=== PATIENT | male | born 1940 | race American Indian/Alaskan Native ===

== ENCOUNTER 2016-11-22 13:05 | Inpatient (IN) | payer MEDICARE ==
--- NOTE | 2016-11-22 13:00 | Post Operative Note ---
Pre-op diagnosis: bilat ureteral stones .. sarcoma Post-op diagnosis: same Findings: as above bladder stone Procedure: cysto rpgs stents rogs laser bladder stone and extrs=ction Anesthesia: GETA Surgeon: BG CHEN Estimated blood loss: none Pathology: list (stone) Specimen disposition: given to patient/family Condition: other (guarded) Disposition: PACU
[~2016-11-22 13:05] MED LIST: OMNIPAQUE 300 MG/50 ML (CATH LAB) IV ONE; WATER FOR IRRIG STERILE IR ONE
--- NOTE | 2016-11-22 13:47 | Anesthesia Consultation ---
Anesthesia Consult and Med Hx Date of service: 11/22/16 - Airway Anesthetic Teeth Evaluation: Dentures ROM Head & Neck: Adequate Mental/Hyoid Distance: Adequate Mallampati Class: Class III Intubation Access Assessment: Probably Good - Pulmonary Exam CTA: Yes - Cardiac Exam Cardiac Exam: RRR - Pre-Operative Health Status ASA Pre-Surgery Classification: ASA2 Proposed Anesthetic Plan: General - Pulmonary Hx Smoking: Yes (former) - Cardiovascular System Hx Hypertension: Yes - Central Nervous System Hx Neuromuscular Disorder: No (gout) - Endocrine Hx Renal Disease: Yes (stones)
[2016-11-22] MEDS ORDERED: MORPHINE IV PRN (13:48)
[2016-11-22] MEDS ORDERED: ZOFRAN IV PRN ×4 (13:48→17:52)
--- NOTE | 2016-11-22 13:48 | Anesthesia Day of Surgery ---
Anesthesia Day of Surgery - Day of Surgery Patient Examined: Yes Patient H&P Reviewed: Yes Patient is NPO: Yes
[2016-11-22] MEDS ORDERED: PEPCID IV NR (14:00)
[2016-11-22] MEDS ORDERED: DIPRIVAN 10 MG/ML IV ONE (14:34)
[2016-11-22] MEDS ORDERED: DILAUDID ONE (14:34)
[2016-11-22] MEDS ORDERED: XYLOCAINE MPF 2% ONE (14:35)
[2016-11-22] MEDS: NACL 0.9% 1000 ML 1,000 ML IV SCH (14:36)
[2016-11-22] MEDS ORDERED: ANCEF/STERILE WATER 2 GM/20 ML IV NR (14:45)
[2016-11-22 15:01] LABS: Basophils % (Auto) 0.2 % (0.0-1.8); Eosinophils % (Auto) 0.5 % (0.0-4.3); Hematocrit 32.5 % (35.5-45.6); Hemoglobin 10.3 gm/dl (11.8-15.2); Mean Corpuscular HGB Conc 32 % (32-34); Platelet Count 344 K/mm3 (140-440); Red Blood Count 4.79 M/mm3 (3.65-5.03); White Blood Count 10.4 K/mm3 (4.5-11.0)
[2016-11-22 15:02] LABS: BUN/Creatinine Ratio 4.75; Blood Urea Nitrogen 69 mg/dL (9-20); Calcium 8.7 mg/dL (8.4-10.2); Chloride 81.7 mmol/L (98-107); Glucose 57 mg/dL (75-100); Mean Corpuscular Hemoglobin 22 pg (28-32); Mean Corpuscular Volume 68 fl (84-94); Sodium 124 mmol/L (137-145)
[2016-11-22 15:04] LABS: Potassium TNR mmol/L (3.6-5.0)
[2016-11-22 15:05] LABS: Anion Gap TNR mmol/L; Carbon Dioxide TNR mmol/L (22-30)
[2016-11-22] MEDS ORDERED: D50W (25GM) IV ONE ×6 (15:09→19:00)
[2016-11-22 15:59] LABS: BUN/Creatinine Ratio 4.82; Calcium 8.7 mg/dL (8.4-10.2); Chloride 87.8 mmol/L (98-107)
[2016-11-22 16:05] LABS: Potassium 2.7 mmol/L (3.6-5.0)
[2016-11-22] MEDS: KCL 10MEQ/100ML 10 MEQ/100 ML BAG IV SCH ×3 (16:21→22:38)
[2016-11-22] MEDS ORDERED: OMNIPAQUE 300 MG/50 ML (CATH LAB) IV ONE (16:43)
[2016-11-22] MEDS ORDERED: WATER FOR IRRIG STERILE IR ONE ×2 (16:43)
[2016-11-22] MEDS ORDERED: NEO SYNEPHRINE/NS Syringe(OR USE) IV ONE (16:52)
[2016-11-22] MEDS ORDERED: ZOFRAN ONE (16:52)
[2016-11-22] MEDS ORDERED: DULCOLAX PR PRN (17:49)
[2016-11-22] MEDS ORDERED: TYLENOL PO PRN (17:49)
[2016-11-22] MEDS ORDERED: DILAUDID IV PRN (17:49)
[2016-11-22] MEDS ORDERED: MILK OF MAGNESIA PO PRN (17:49)
--- NOTE | 2016-11-22 17:50 | Post Anesthesia Evaluation ---
- Post Anesthesia Evaluation Patient Participated: Yes Airway Patent: Yes Stable Respiratory Function: Yes Nausea/Vomiting: No Temp > 96.8F: Yes Pain Manageable: Yes Adequeate Hydration: Yes Anesthesia Complications: No Block Receding Appropriately: Yes Patient on Ventilator: No
[2016-11-22] MEDS ORDERED: REGLAN IV PRN (18:11)
--- NOTE | 2016-11-22 18:19 | History and Physical Report ---
History of Present Illness Date of examination: 11/22/16 Date of admission: 11/22/2016 Chief complaint: Decreased urinary output. History of present illness: 76 y/o AAF underwent cystoscopy with bladder stone removal by laser and bilateral ureteral stents for relief of bilateral hydronephrosis.Patient has creatinine of 14 before the procedure. 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) Social history: lives with family (with one of the daughters), other (Chews Tobacco) Family history: hypertension Medications and Allergies Allergies Allergy/AdvReac Type Severity Reaction Status Date / Time NKDA Allergy Unknown Unknown Uncoded 11/22/16 13:42 Home Medications Medication Instructions Recorded Confirmed Last Taken Type Allopurinol [Allopurinol] 100 mg PO TID 11/22/16 11/22/16 11/20/16 History Levofloxacin [Levaquin TAB] 500 mg PO QDAY 11/22/16 11/22/16 11/21/16 History Lovastatin [Lovastatin] 40 mg PO DAILY 11/22/16 11/22/16 11/20/16 History Polyethylene Glycol 3350 [Miralax] 11/22/16 11/19/16 History Verapamil HCl [Verelan] 360 mg PO 11/22/16 11/20/16 History Active Meds: Active Medications Acetaminophen (Tylenol) 650 mg PO Q4H PRN PRN Reason: Pain MILD(1-3)/Fever >100.5/MOLINA Bisacodyl (Dulcolax) 10 mg [place] QDAY PRN PRN Reason: Constipation unrelieved by MOM Cefazolin Sodium (Ancef/Sterile Water 2 Gm/20 Ml) 2 gm IV PREOP NR Stop: 11/22/16 23:59 Dextrose (D50w (25gm)) 50 gm IV ONCE ONE Stop: 11/22/16 18:00 Enoxaparin Sodium (Lovenox) 30 mg SUB-Q QDAY SHANA Famotidine (Pepcid) 20 mg IV PREOP NR Stop: 11/22/16 23:01 Last Admin: 11/22/16 14:35 Dose: 20 mg Hydromorphone HCl (Dilaudid) 0.5 mg IV Q3H PRN PRN Reason: Pain , Severe (7-10) Sodium Chloride (Nacl 0.9% 1000 Ml) 1,000 mls @ 100 mls/hr IV DIRECT SHANA Last Admin: 11/22/16 14:36 Dose: 42 mls/hr Potassium Chloride (Kcl 10meq/100ml) 10 meq in 100 mls @ 100 mls/hr IV Q1H SHANA Stop: 11/22/16 18:59 Last Admin: 11/22/16 16:21 Dose: 100 mls/hr Potassium Chloride (Kcl 10meq/100ml) 100 mls @ 100 mls/hr IV Q1H SHANA Stop: 11/22/16 21:59 Potassium Chloride 20 meq/ (Dextrose/Sodium Chloride) 1,010 mls @ 125 mls/hr IV DIRECT SHANA Magnesium Hydroxide (Milk Of Magnesia) 30 ml PO Q4H PRN PRN Reason: Constipation Morphine Sulfate (Morphine) 2 mg IV Q10MIN PRN PRN Reason: Pain, Moderate (4-6) Stop: 11/22/16 23:00 Ondansetron HCl (Zofran) 4 mg IV ONCE PRN PRN Reason: Nausea And Vomiting Stop: 11/22/16 17:53 Ondansetron HCl (Zofran) 4 mg IV Q8H PRN PRN Reason: N/V unrelieved by Reglan Potassium Chloride (K-Dur) 40 meq PO Q4H SHANA Stop: 11/26/16 17:59 Review of Systems All systems: negative Exam - Constitutional Vitals: Temp Pulse Resp BP Pulse Ox 97.9 F 86 20 139/79 99 11/22/16 14:21 11/22/16 14:21 11/22/16 14:21 11/22/16 14:21 11/22/16 14:21 General appearance: Present: no acute distress, well-nourished - EENT Eyes: Present: PERRL ENT: hearing intact, clear oral mucosa - Neck Neck: Present: supple, normal ROM - Respiratory Respiratory effort: normal Respiratory: bilateral: CTA - Cardiovascular Heart Sounds: Present: S1 & S2. Absent: rub, click - Extremities Extremities: pulses symmetrical, No edema Peripheral Pulses: within normal limits - Abdominal General gastrointestinal: Present: soft, non-tender, non-distended, normal bowel sounds Male genitourinary: Present: normal - Integumentary Integumentary: Present: clear, warm, dry - Musculoskeletal Musculoskeletal: gait normal, strength equal bilaterally - Psychiatric Psychiatric: appropriate mood/affect, intact judgment & insight - Neurologic Neurologic: CNII-XII intact, moves all extremities Results - Labs CBC & Chem 7: 11/22/16 14:25 11/22/16 15:15 Labs: Laboratory Last Values WBC 10.4 K/mm3 (4.5-11.0) 11/22/16 14:25 RBC 4.79 M/mm3 (3.65-5.03) 11/22/16 14:25 Hgb 10.3 gm/dl (11.8-15.2) L 11/22/16 14:25 Hct 32.5 % (35.5-45.6) L 11/22/16 14:25 MCV 68 fl (84-94) L 11/22/16 14:25 MCH 22 pg (28-32) L 11/22/16 14:25 MCHC 32 % (32-34) 11/22/16 14:25 RDW 22.0 % (13.2-15.2) H 11/22/16 14:25 Plt Count 344 K/mm3 (140-440) 11/22/16 14:25 Lymph % (Auto) 10.4 % (13.4-35.0) L 11/22/16 14:25 Harvey % (Auto) 11.4 % (0.0-7.3) H 11/22/16 14:25 Eos % (Auto) 0.5 % (0.0-4.3) 11/22/16 14:25 Baso % (Auto) 0.2 % (0.0-1.8) 11/22/16 14:25 Lymph # 1.1 K/mm3 (1.2-5.4) L 11/22/16 14:25 Harvey # 1.2 K/mm3 (0.0-0.8) H 11/22/16 14:25 Eos # 0.1 K/mm3 (0.0-0.4) 11/22/16 14:25 Baso # 0.0 K/mm3 (0.0-0.1) 11/22/16 14:25 Seg Neutrophils % 77.5 % (40.0-70.0) H 11/22/16 14:25 Seg Neutrophils # 8.0 K/mm3 (1.8-7.7) H 11/22/16 14:25 Sodium 133 mmol/L (137-145) L D 11/22/16 15:15 Potassium 2.7 mmol/L (3.6-5.0) L* 11/22/16 15:15 Chloride 87.8 mmol/L (98-107) L 11/22/16 15:15 Carbon Dioxide 17 mmol/L (22-30) L 11/22/16 15:15 Anion Gap 31 mmol/L 11/22/16 15:15 BUN 70 mg/dL (9-20) H 11/22/16 15:15 Creatinine 14.5 mg/dL (0.8-1.5) H 11/22/16 15:15 Estimated GFR 4 ml/min 11/22/16 15:15 BUN/Creatinine Ratio 4.82 % 11/22/16 15:15 Glucose 70 mg/dL (75-100) L 11/22/16 15:15 Calcium 8.7 mg/dL (8.4-10.2) 11/22/16 15:15 Assessment and Plan Advance Directives: Yes (Discussed.Son to decide tomorrow about DNR) VTE prophylaxis?: Chemical Plan of care discussed with patient/family: No - Patient Problems (1) Acute renal failure (ARF) Current Visit: Yes Status: Acute Qualifiers: Acute renal failure type: with acute renal cortical necrosis Qualified Code (s): N17.1 - Acute kidney failure with acute cortical necrosis Plan to address problem: Post obstuctive renal faiure.S/p bilateral ureteral stent placement done.With relief of obstruction there maybe resolution.Possible cortical damage resulting in HD. 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
[2016-11-22] MEDS ORDERED: D5NS 1,000 ML with KCL 20 MEQ IV SCH (19:00)
[2016-11-22 20:05] LABS: Basophils % (Auto) 0.1 % (0.0-1.8); Eosinophils % (Auto) 0.1 % (0.0-4.3); Hemoglobin 10.2 gm/dl (11.8-15.2); Mean Corpuscular HGB Conc 32 % (32-34); Platelet Count 297 K/mm3 (140-440); Red Blood Count 4.58 M/mm3 (3.65-5.03); White Blood Count 11.8 K/mm3 (4.5-11.0)
[2016-11-22 20:07] LABS: Mean Corpuscular Hemoglobin 22 pg (28-32); Mean Corpuscular Volume 70 fl (84-94)
[2016-11-22 20:08] LABS: Red Cell Distribution Width 22.2 % (13.2-15.2)
--- NOTE | 2016-11-22 20:26 | Operative Report ---
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 PROCEDURE: Cystoscopy, bilateral stents, laser of large bladder stone with extraction of stone. SURGEON: Bob Henson MD ANESTHESIA: Spinal. FINDINGS: This is a gentleman who presented severely ill. We offered him even hospice with a large sarcoma in the pelvis, bilateral renal stones and ureteral stones and bladder stones with right flank pain. He now presents for stenting with a creatinine of over 14. DESCRIPTION OF PROCEDURE: The patient was brought to the operating room and placed on the operating table. Following induction of anesthesia which was spinal, placed in lithotomy position, prepped and draped in usual sterile fashion. Cystourethroscopy showed a previously resected bladder neck and partial prostate. There was some mild bladder neck narrowing. Retrograde showed severe bilateral hydronephrosis with ureteral UPJ stones and left upper ureteral stone. There was a 1 cm bladder stone, which was a jackstone. The wire coiled in the right kidney and a 4.8 x 24 cm double J coiled in the right side and a 7-Norwegian double J coiled on the left side. The stone was too big to extract, so we lasered it into three pieces and extracted that. The patient tolerated the procedure well. We placed a 22 Mcmillan. The patient had intermittent nausea and vomiting, so we did not want to disturb anything. His creatinine was high. His potassium was low. So, we placed a stent, removed the stone, and finished the procedure, brought to recovery in guarded condition. JOB# [id number] DANIEL/GONZALEZ
[2016-11-22 20:29] LABS: Albumin 3.4 g/dL (3.9-5); Albumin/Globulin Ratio 0.8 %; BUN/Creatinine Ratio 5.72; Bilirubin,Total 0.4 mg/dL (0.1-1.2); Calcium 8.7 mg/dL (8.4-10.2); Chloride 88.8 mmol/L (98-107); Potassium 3.2 mmol/L (3.6-5.0); Total Protein 7.7 g/dL (6.3-8.2)
[2016-11-23] MEDS: KCL 10MEQ/100ML 10 MEQ/100 ML BAG IV SCH ×3 (00:31→02:40)
[2016-11-23] MEDS: K-DUR PO SCH ×5 (02:34→09:49)
[2016-11-23 05:53] LABS: Albumin 3.3 g/dL (3.9-5); Albumin/Globulin Ratio 0.8 %; BUN/Creatinine Ratio 7.63; Bilirubin,Total 0.3 mg/dL (0.1-1.2); Chloride 95.8 mmol/L (98-107); Potassium 3.3 mmol/L (3.6-5.0); Total Protein 7.4 g/dL (6.3-8.2)
[2016-11-23 06:06] LABS: Mean Corpuscular HGB Conc 30 % (32-34); Red Blood Count 4.86 M/mm3 (3.65-5.03); White Blood Count 9.8 K/mm3 (4.5-11.0)
[2016-11-23 06:11] LABS: Hematocrit 33.9 % (35.5-45.6); Hemoglobin 10.1 gm/dl (11.8-15.2); Mean Corpuscular Volume 70 fl (84-94)
[2016-11-23 06:12] LABS: Mean Corpuscular Hemoglobin 21 pg (28-32); Red Cell Distribution Width 22.3 % (13.2-15.2)
[2016-11-23 06:27] LABS: Platelet Count 124 K/mm3 (140-440)
[2016-11-23 08:18] LABS: Basophils % (Auto) 0.2 % (0.0-1.8); Eosinophils % (Auto) 0.2 % (0.0-4.3)
[2016-11-23 08:19] LABS: Diff Status Complete
--- NOTE | 2016-11-23 08:29 | Progress Note ---
Assessment and Plan excellent improval renal function leave julia has stents rec director of social work possible hospice with huge sarcoma discussed last night with family Subjective Date of service: 11/23/16 Principal diagnosis: acute renal failure Objective - Constitutional Vitals: Vital Signs - 12hr 11/22/16 11/23/16 11/23/16 21:30 00:15 04:30 Temperature 97.5 F L 97.9 F 98 F Pulse Rate [ 60 71 75 Left] Respiratory 20 20 20 Rate Blood Pressure 157/75 142/90 136/82 [Left Arm] O2 Sat by Pulse 98 100 100 Oximetry - Labs CBC & Chem 7: 11/23/16 04:54 11/23/16 04:54 Labs: Abnormal lab results 11/22/16 11/22/16 11/22/16 Range/Units 14:25 14:25 15:15 WBC (4.5-11.0) K/mm3 Hgb 10.3 L (11.8-15.2) gm/dl Hct 32.5 L (35.5-45.6) % MCV 68 L (84-94) fl MCH 22 L (28-32) pg MCHC (32-34) % RDW 22.0 H (13.2-15.2) % Plt Count (140-440) K/mm3 Lymph % (Auto) 10.4 L (13.4-35.0) % Beckham % (Auto) 11.4 H (0.0-7.3) % Lymph # 1.1 L (1.2-5.4) K/mm3 Beckham # 1.2 H (0.0-0.8) K/mm3 Seg Neutrophils % 77.5 H (40.0-70.0) % Seg Neutrophils # 8.0 H (1.8-7.7) K/mm3 Sodium 124 L 133 L D (137-145) mmol/L Potassium 2.7 L* (3.6-5.0) mmol/L Chloride 81.7 L 87.8 L (98-107) mmol/L Carbon Dioxide 17 L (22-30) mmol/L BUN 69 H 70 H (9-20) mg/dL Creatinine 14.5 H 14.5 H (0.8-1.5) mg/dL Glucose 57 L 70 L (75-100) mg/dL Albumin (3.9-5) g/dL 03/03/17 03/03/17 03/04/17 Range/Units 20:00 20:00 04:54 WBC 11.8 H (4.5-11.0) K/mm3 Hgb 10.2 L 10.1 L (11.8-15.2) gm/dl Hct 32.0 L 33.9 L (35.5-45.6) % MCV 70 L 70 L (84-94) fl MCH 22 L 21 L (28-32) pg MCHC 30 L (32-34) % RDW 22.2 H 22.3 H (13.2-15.2) % Plt Count 124 L (140-440) K/mm3 Lymph % (Auto) 7.0 L 8.0 L (13.4-35.0) % Beckham % (Auto) 12.0 H 8.4 H (0.0-7.3) % Lymph # 0.8 L 0.8 L (1.2-5.4) K/mm3 Beckham # 1.4 H (0.0-0.8) K/mm3 Seg Neutrophils % 80.8 H 83.2 H (40.0-70.0) % Seg Neutrophils # 9.5 H 8.1 H (1.8-7.7) K/mm3 Sodium 133 L (137-145) mmol/L Potassium 3.2 L (3.6-5.0) mmol/L Chloride 88.8 L (98-107) mmol/L Carbon Dioxide 15 L (22-30) mmol/L BUN 67 H (9-20) mg/dL Creatinine 11.7 H (0.8-1.5) mg/dL Glucose 125 H (75-100) mg/dL Albumin 3.4 L (3.9-5) g/dL 11/23/16 Range/Units 04:54 WBC (4.5-11.0) K/mm3 Hgb (11.8-15.2) gm/dl Hct (35.5-45.6) % MCV (84-94) fl MCH (28-32) pg MCHC (32-34) % RDW (13.2-15.2) % Plt Count (140-440) K/mm3 Lymph % (Auto) (13.4-35.0) % Beckham % (Auto) (0.0-7.3) % Lymph # (1.2-5.4) K/mm3 Beckham # (0.0-0.8) K/mm3 Seg Neutrophils % (40.0-70.0) % Seg Neutrophils # (1.8-7.7) K/mm3 Sodium 136 L (137-145) mmol/L Potassium 3.3 L (3.6-5.0) mmol/L Chloride 95.8 L (98-107) mmol/L Carbon Dioxide 15 L (22-30) mmol/L BUN 55 H (9-20) mg/dL Creatinine 7.2 H (0.8-1.5) mg/dL Glucose 108 H (75-100) mg/dL Albumin 3.3 L (3.9-5) g/dL
[2016-11-23] MEDS: LOVENOX SUB-Q SCH (09:49)
--- NOTE | 2016-11-23 10:12 | Consultation ---
History of Present Illness - Reason for Consult Consult date: 11/23/16 acute renal failure, hypokalemia, metabolic acidosis - History of Present Illness Patient is a 76 y/o AAM with history significant for Hypertension, Hyperlipidemia, Gout and Retroperitoneal Sarcoma s/p resection presented with bilateral hydronephrosis and bladder stone. Patient is confused to give any history at this time. Patient underwent Cystoscopy, retrograde pyelogram, Bladder stone removal by laser and bilateral ureteral stents placed yesterday by Urologist. His creatinine was 14.5 prior to the procedure and has improved to 7 today. Baseline creatinine is unknown. Imaging done outside also showed large Sarcoma per Urologist. 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) Social history: lives with family (with one of the daughters), other (Chews Tobacco) Family history: hypertension Medications and Allergies Allergies Allergy/AdvReac Type Severity Reaction Status Date / Time NKDA Allergy Unknown Unknown Uncoded 11/22/16 13:42 Home Medications Medication Instructions Recorded Confirmed Last Taken Type Allopurinol [Allopurinol] 100 mg PO TID 11/22/16 11/22/16 11/20/16 History Hydrochlorothiazide 1 mg PO DAILY 11/22/16 11/22/16 11/20/16 History [Hydrochlorothiazide] Levofloxacin [Levaquin TAB] 500 mg PO QDAY 11/22/16 11/22/16 11/21/16 History Lovastatin [Lovastatin] 40 mg PO DAILY 11/22/16 11/22/16 11/20/16 History Polyethylene Glycol 3350 [Miralax] 17 gram PO DAILY PRN 11/22/16 11/22/16 History Verapamil HCl [Verelan] 360 mg PO DAILY 11/22/16 11/22/16 11/20/16 History Active Meds: Active Medications Acetaminophen (Tylenol) 650 mg PO Q4H PRN PRN Reason: Pain MILD(1-3)/Fever >100.5/MOLINA Bisacodyl (Dulcolax) 10 mg [place] QDAY PRN PRN Reason: Constipation unrelieved by MOM Enoxaparin Sodium (Lovenox) 30 mg SUB-Q QDAY SHANA Last Admin: 11/23/16 09:49 Dose: 30 mg Hydromorphone HCl (Dilaudid) 0.5 mg IV Q3H PRN PRN Reason: Pain , Severe (7-10) Sodium Chloride (Nacl 0.9% 1000 Ml) 1,000 mls @ 100 mls/hr IV DIRECT SHANA Last Admin: 11/22/16 14:36 Dose: 42 mls/hr Potassium Chloride 20 meq/ (Dextrose/Sodium Chloride) 1,010 mls @ 125 mls/hr IV DIRECT SHANA Last Admin: 11/23/16 03:02 Dose: 125 mls/hr Magnesium Hydroxide (Milk Of Magnesia) 30 ml PO Q4H PRN PRN Reason: Constipation Metoclopramide HCl (Reglan) 10 mg IV ONCE PRN PRN Reason: Nausea And Vomiting Last Admin: 11/22/16 18:30 Dose: 10 mg Ondansetron HCl (Zofran) 4 mg IV Q8H PRN PRN Reason: N/V unrelieved by Reglan Potassium Chloride (K-Dur) 40 meq PO Q4H SHANA Stop: 11/26/16 17:59 Last Admin: 11/23/16 09:49 Dose: 40 meq Review of Systems ROS unobtainable: due to mental status Exam - Vital Signs Vital signs: Vital Signs Temp Pulse Resp BP Pulse Ox 97.9 F 86 20 139/79 99 11/22/16 13:25 11/22/16 13:25 11/22/16 13:25 11/22/16 13:25 11/22/16 13:25 - General Appearance General appearance: well-developed, well-nourished, other (no distress) EENT: PERRL, hearing intact, vision intact Neck: Present: neck supple, trachea midline Respiratory: Clear to Ascultation Heart: regular, S1S2, no murmurs Gastrointestinal: Present: normoactive bowel sounds, other (dumont catheter noted ). Absent: tenderness, distended Integumentary: no rash, warm and dry Neurologic: confused, disoriented, other (not following any command) Musculoskeletal: Present: other (no edema) Results - Lab Results 11/23/16 04:54 11/23/16 04:54 Most recent lab results Calcium 9.0 mg/dL (8.4-10.2) 11/23/16 04:54 Magnesium 2.1 mg/dL (1.7-2.3) 11/22/16 20:00 - Image Kidney/bladder ultrasound: other Assessment and Plan - Patient Problems (1) Acute renal failure (ARF) Current Visit: Yes Status: Acute Qualifiers: Acute renal failure type: with acute renal cortical necrosis Qualified Code (s): N17.1 - Acute kidney failure with acute cortical necrosis Plan to address problem: Acute Kidney Injury in the setting of Obstructive Uropathy, now s/p bilateral stents. Creatinine is improving. Continue IV fluids. Monitor renal function. (2) Hypokalemia Current Visit: Yes Status: Acute Plan to address problem: Patient is IV and PO replacement. Monitor K levels. (3) Sarcoma Current Visit: Yes Status: Chronic (4) HTN (hypertension) Current Visit: Yes Status: Chronic Qualifiers: Hypertension type: essential hypertension Qualified Code(s): I10 - Essential (primary) hypertension Plan to address problem: BP well controlled. (5) Gout Current Visit: Yes Status: Chronic Qualifiers: Gout site: G Gout etiology: G Encounter type: E Laterality: L Chronicity: C Presence of tophus: P
--- NOTE | 2016-11-23 10:27 | Progress Note ---
Assessment and Plan Assessment and plan: 76 y/o AAF underwent cystoscopy with bladder stone removal by laser and bilateral ureteral stents for relief of bilateral hydronephrosis.Patient has creatinine of 14 before the procedure. (1) Acute renal failure (ARF) -Due to obstructive nephropathy Creatinine has trended down from 14-2.4, (2) Hypokalemia past supplemented and improved (3) HTN (hypertension) hypertensive medications on hold, patient's blood pressure is currently acceptable, we'll likely reintroduce blood pressure medications tomorrow (4) Gout resume allopurinol (5) HLD (hyperlipidemia) Resume statins (6) Sarcoma Status post recent surgical resection, however the mass was not completely resectable His surgeon is Dr. Wu at [facility] telephone #[phone] or And his primary care doctor is Dr. Blanton at [facility] -Will consult Dr Flower of Oncology, as patient has not been able to fup at [facility] or [facility] History Interval history: Patient is somewhat delirious, his son is at the bedside and states that postoperatively he usually remains delirious for 1-2 days. Nurses note that he has been diuresing him in quite a bit of urine. Hospitalist Physical - Physical exam Narrative exam: General: Patient appears well in no distress HEENT: MMM, EOMI cardiac: S1-S2 heard lungs: clear to auscultation, abdomen: Palpable nontender pelvic mass extremities: no edema clubbing or cyanosis Skin: no rash or lesion Neuro: no focal deficit Confused - Constitutional Vitals: Temp Pulse Resp BP Pulse Ox 98 F 75 20 136/82 100 11/23/16 04:30 11/23/16 04:30 11/23/16 04:30 11/23/16 04:30 11/23/16 04:30 General appearance: Present: no acute distress, well-nourished Results - Labs CBC & Chem 7: 11/23/16 04:54 11/24/16 04:28 Labs: Laboratory Last Values WBC 9.8 K/mm3 (4.5-11.0) 11/23/16 04:54 RBC 4.86 M/mm3 (3.65-5.03) 11/23/16 04:54 Hgb 10.1 gm/dl (11.8-15.2) L 11/23/16 04:54 Hct 33.9 % (35.5-45.6) L 11/23/16 04:54 MCV 70 fl (84-94) L 11/23/16 04:54 MCH 21 pg (28-32) L 11/23/16 04:54 MCHC 30 % (32-34) L 11/23/16 04:54 RDW 22.3 % (13.2-15.2) H 11/23/16 04:54 Plt Count 124 K/mm3 (140-440) L 11/23/16 04:54 Lymph % (Auto) 8.0 % (13.4-35.0) L 11/23/16 04:54 Appling % (Auto) 8.4 % (0.0-7.3) H 11/23/16 04:54 Eos % (Auto) 0.2 % (0.0-4.3) 11/23/16 04:54 Baso % (Auto) 0.2 % (0.0-1.8) 11/23/16 04:54 Lymph # 0.8 K/mm3 (1.2-5.4) L 11/23/16 04:54 Appling # 0.8 K/mm3 (0.0-0.8) 11/23/16 04:54 Eos # 0.0 K/mm3 (0.0-0.4) 11/23/16 04:54 Baso # 0.0 K/mm3 (0.0-0.1) 11/23/16 04:54 Add Manual Diff Complete 11/23/16 04:54 Seg Neutrophils % 83.2 % (40.0-70.0) H 11/23/16 04:54 Seg Neutrophils # 8.1 K/mm3 (1.8-7.7) H 11/23/16 04:54 Sodium 136 mmol/L (137-145) L 11/23/16 04:54 Potassium 3.3 mmol/L (3.6-5.0) L 11/23/16 04:54 Chloride 95.8 mmol/L (98-107) L 11/23/16 04:54 Carbon Dioxide 15 mmol/L (22-30) L 11/23/16 04:54 Anion Gap 29 mmol/L 11/23/16 04:54 BUN 55 mg/dL (9-20) H 11/23/16 04:54 Creatinine 7.2 mg/dL (0.8-1.5) H 11/23/16 04:54 Estimated GFR 9 ml/min 11/23/16 04:54 BUN/Creatinine Ratio 7.63 % 11/23/16 04:54 Glucose 108 mg/dL (75-100) H 11/23/16 04:54 Calcium 9.0 mg/dL (8.4-10.2) 11/23/16 04:54 Magnesium 2.1 mg/dL (1.7-2.3) 11/22/16 20:00 Total Bilirubin 0.3 mg/dL (0.1-1.2) 11/23/16 04:54 AST 12 units/L (5-40) 11/23/16 04:54 ALT 7 units/L (7-56) 11/23/16 04:54 Alkaline Phosphatase 70 units/L (35-129) 11/23/16 04:54 Total Protein 7.4 g/dL (6.3-8.2) 11/23/16 04:54 Albumin 3.3 g/dL (3.9-5) L 11/23/16 04:54 Albumin/Globulin Ratio 0.8 % 11/23/16 04:54
[2016-11-23] MEDS ORDERED: D5W/NS W/KCL 20MEQ 20 MEQ/1,000 ML BAG IV SCH (13:00)
[2016-11-23] MEDS ORDERED: K-DUR PO SCH (14:00)
[2016-11-23 17:28] LABS: Bilirubin,Urine NEG (Negative); Blood,Urine LG (Negative); Ketones,Urine NEG (Negative); Leukocyte Esterase,Urine MOD (Negative); Nitrite,Urine NEG (Negative); Urobilinogen,Urine < 2.0 mg/dL (<2.0)
[2016-11-23 17:30] LABS: RBC,Urine > 182.0 /HPF (0.0-6.0)
--- NOTE | 2016-11-23 23:04 | Consultation ---
History of Present Illness - Reason for Consult Consult date: 11/23/16 HX of Sarcoma. Requesting physician: ABHIJEET DING - History of Present Illness Thank you for this consult, patient seen/examined, labs/records reviewed, case d /w patient ,and his family at the bed side. Kindly asked to see this patient who presented with urinary sxs, found to be consistent with obstructive uropathy , and overt renal failure, and uti. 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 He was then seen by DR Gordon Arzola oncologist. All thes took place at [facility]. They the family denies any treatment with either chemo/or XRT. They were asked to come back on a 6month interval visit. i think that he will need a PET CT .This can be done once patient d/c as out patient.This will allow the family to see the extent of the disease burden, and possible mets. They still believe that 95% of the disease removed from his previous surgery, and as sebastien claimed they were told by the surgeon at [facility]. I seriously doubt that. The good thin is that he is relieved of the discomfort from the hydrnephrosis/nephrolithiasis. 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) Social history: lives with family (with one of the daughters), other (Chews Tobacco) Family history: hypertension Medications and Allergies Allergies Allergy/AdvReac Type Severity Reaction Status Date / Time NKDA Allergy Unknown Unknown Uncoded 11/22/16 13:42 Home Medications Medication Instructions Recorded Confirmed Last Taken Type Allopurinol [Allopurinol] 100 mg PO TID 11/22/16 11/22/16 11/20/16 History Hydrochlorothiazide 1 mg PO DAILY 11/22/16 11/22/16 11/20/16 History [Hydrochlorothiazide] Levofloxacin [Levaquin TAB] 500 mg PO QDAY 11/22/16 11/22/16 11/21/16 History Lovastatin [Lovastatin] 40 mg PO DAILY 11/22/16 11/22/16 11/20/16 History Polyethylene Glycol 3350 [Miralax] 17 gram PO DAILY PRN 11/22/16 11/22/16 History Verapamil HCl [Verelan] 360 mg PO DAILY 11/22/16 11/22/16 11/20/16 History Active Meds: Active Medications Acetaminophen (Tylenol) 650 mg PO Q4H PRN PRN Reason: Pain MILD(1-3)/Fever >100.5/MOLINA Bisacodyl (Dulcolax) 10 mg IN QDAY PRN PRN Reason: Constipation unrelieved by MOM Enoxaparin Sodium (Lovenox) 30 mg SUB-Q QDAY SHANA Last Admin: 11/23/16 09:49 Dose: 30 mg Hydromorphone HCl (Dilaudid) 0.5 mg IV Q3H PRN PRN Reason: Pain , Severe (7-10) Sodium Chloride (Nacl 0.9% 1000 Ml) 1,000 mls @ 100 mls/hr IV DIRECT SHANA Last Admin: 11/22/16 14:36 Dose: 42 mls/hr Potassium Chloride/Dextrose/Sod Cl (D5w/Ns W/Kcl 20meq) 20 meq in 1,000 mls @ 125 mls/hr IV DIRECT SHANA Last Admin: 11/23/16 14:04 Dose: 125 mls/hr Magnesium Hydroxide (Milk Of Magnesia) 30 ml PO Q4H PRN PRN Reason: Constipation Metoclopramide HCl (Reglan) 10 mg IV ONCE PRN PRN Reason: Nausea And Vomiting Last Admin: 11/22/16 18:30 Dose: 10 mg Ondansetron HCl (Zofran) 4 mg IV Q8H PRN PRN Reason: N/V unrelieved by Reglan Exam - Constitutional Vitals: Temp Pulse Resp BP Pulse Ox 98.0 F 71 20 147/73 100 11/23/16 20:00 11/23/16 20:00 11/23/16 20:00 11/23/16 20:00 11/23/16 20:00 General appearance: Present: no acute distress, mild distress, well-nourished - EENT Eyes: Present: PERRL ENT: hearing intact, clear oral mucosa - Neck Neck: Present: supple, normal ROM - Respiratory Respiratory effort: normal Respiratory: bilateral: CTA - Cardiovascular Heart Sounds: Present: S1 & S2. Absent: rub, click - Extremities Extremities: pulses symmetrical, No edema Peripheral Pulses: within normal limits - Abdominal General gastrointestinal: Present: soft, non-tender, non-distended, normal bowel sounds Male genitourinary: Present: deferred - Rectal Rectal Exam: deferred - Integumentary Integumentary: Present: clear, warm, dry - Musculoskeletal Musculoskeletal: gait normal, strength equal bilaterally - Psychiatric Psychiatric: appropriate mood/affect - Neurologic Neurologic: CNII-XII intact, moves all extremities Results - Labs CBC & Chem 7: 11/23/16 04:54 11/23/16 04:54 Labs: Abnormal lab results 11/23/16 11/23/16 11/23/16 Range/Units 04:54 04:54 10:16 Hgb 10.1 L (11.8-15.2) gm/dl Hct 33.9 L (35.5-45.6) % MCV 70 L (84-94) fl MCH 21 L (28-32) pg MCHC 30 L (32-34) % RDW 22.3 H (13.2-15.2) % Plt Count 124 L (140-440) K/mm3 Lymph % (Auto) 8.0 L (13.4-35.0) % Borden % (Auto) 8.4 H (0.0-7.3) % Lymph # 0.8 L (1.2-5.4) K/mm3 Seg Neutrophils % 83.2 H (40.0-70.0) % Seg Neutrophils # 8.1 H (1.8-7.7) K/mm3 Sodium 136 L (137-145) mmol/L Potassium 3.3 L (3.6-5.0) mmol/L Chloride 95.8 L (98-107) mmol/L Carbon Dioxide 15 L (22-30) mmol/L BUN 55 H (9-20) mg/dL Creatinine 7.2 H (0.8-1.5) mg/dL Glucose 108 H (75-100) mg/dL Albumin 3.3 L (3.9-5) g/dL Urine WBC (Auto) 72.0 H (0.0-6.0) /HPF Urine Creatinine (0.1-20.0) mg/dL 11/23/16 Range/Units 10:16 Hgb (11.8-15.2) gm/dl Hct (35.5-45.6) % MCV (84-94) fl MCH (28-32) pg MCHC (32-34) % RDW (13.2-15.2) % Plt Count (140-440) K/mm3 Lymph % (Auto) (13.4-35.0) % Borden % (Auto) (0.0-7.3) % Lymph # (1.2-5.4) K/mm3 Seg Neutrophils % (40.0-70.0) % Seg Neutrophils # (1.8-7.7) K/mm3 Sodium (137-145) mmol/L Potassium (3.6-5.0) mmol/L Chloride (98-107) mmol/L Carbon Dioxide (22-30) mmol/L BUN (9-20) mg/dL Creatinine (0.8-1.5) mg/dL Glucose (75-100) mg/dL Albumin (3.9-5) g/dL Urine WBC (Auto) (0.0-6.0) /HPF Urine Creatinine 110.9 H (0.1-20.0) mg/dL Assessment and Plan - Patient Problems (1) Acute renal failure (ARF) Current Visit: Yes Status: Acute Qualifiers: Acute renal failure type: with acute renal cortical necrosis Qualified Code (s): N17.1 - Acute kidney failure with acute cortical necrosis Plan to address problem: Improving. (2) Sarcoma Current Visit: Yes Status: Chronic Plan to address problem: SEE rec in the notes. (3) UTI (urinary tract infection) Current Visit: Yes Status: Acute Qualifiers: Urinary tract infection type: U Hematuria presence: H Indwelling urinary catheter type: I Encounter type: E Plan to address problem: Continue with ABX. (4) Obstructive uropathy Current Visit: Yes Status: Acute Plan to address problem: Better since urological laser procedure.
--- NOTE | 2016-11-24 03:48 | Admit Criteria Form ---
Admission Criteria Documentation: AMBULATORY SURGERY EXCEPTION CRITERIA Ambulatory Surgery Exception Criteria ( Place 'X' for any and all applicable criteria): Surgery or procedure performed on ambulatory basis may require inpatient stay for[A] ANY ONE of the following(1)(2)(3)(4)(5)(6)(7)(8)(9): [X] I. A preoperative situation, condition, or finding that warrants inpatient stay as indicated by ANY ONE of the following: [] a) Inpatient care needed because of severity of a disease or condition rather than the surgery (eg, severe cardiac or respiratory disease, severe infection) (15) (16 ) (17) (18) [] b) Emergent procedure (eg, angioplasty for acute ischemia)(19) [] c) Complex surgical approach or situation as indicated by ANY ONE of the following(3): [] i) Open approach needed instead of usual endoscopic, transcatheter, or other less invasive procedure [] ii) Difficult approach because of previous operation [] iii) Airway monitoring required after open neck procedures(20)(21) [] iv) Large mass requiring unusually extensive dissection [] v) Additional complicating feature requiring inpatient care (eg, drain management)(22(23): [X] d) Major surgery in a pt with high anesthetic risk as indicated by ANY ONE of the following (2)(3)(5)(7)(8): [X] i) ASA risk class III or higher (severe systemic disease impairing function) [D] [] ii) Advanced age (eg, older than 85 years)(14)(24) [] iii) Symptomatic heart failure(25) [] iv) Symptomatic asthma or COPD(8)(21) [] v) Morbid obesity with hemodynamic or respiratory problems(20)( 21)(26)(27) [] vi) Obstructive sleep apnea(20)(21) [] vii) Former premature infants who are younger than 60 weeks [] viii) High risk for severe postoperative abnormalities (eg, severe postoperative hypocalcemia after parathyroidectomy for severe hyperparathyroidism)(27)( 28) [] ix) Unstable angina(25) [] e) Drug-related risk requiring inpatient stay as indicated by ANY ONE of the following(5)(10)(14)(32)(33) [] i) Procedure requires discontinuing drugs or other therapy (eg , antiarrhythmic medication, antiseizure medication), which necessitates inpatient observation or treatment.(18)(31) [] ii) Major surgery and high risk drug use as indicated by ANY ONE of the following: [] 1) Active abuse of cocaine or similar drug [] 2) Monoamine oxidase inhibitor use [] 3) Other drug identified as posing risk [] f) Inadequate outpatient care situation as indicated by ANY ONE of the following(5)(10)(14)(32)(33) [] i) Patient lives remote from medical facility and procedure has urgent complication potential, and temporary nearby residence cannot be arranged [] ii) Patient will have postprocedure incapacitation and inadequate assistance at home, or alternative level of care cannot be arranged. [] iii) Patient will have long general anesthesia or procedure side effect resolution time, and competent person to stay with patient on first postoperative night at home or alternative level of care cannot be arranged. []iv) Other inadequate outpatient situation that cannot be handled by other means [] II. A perioperative event, condition, or finding that warrants inpatient stay as indicated by ANY ONE of the following (1)(2)(3): [] a) Inadequate physiologic recovery: cardiovascular, respiratory, or hemodynamic status not normal or near preoperative baseline(18) [] b) Hemodynamic instability [] c) Patient not alert with near normal or baseline mental status [] d) Temperature not normal or as expected and not appropriate for outpatient treatment of condition [] e) Ambulatory or appropriate activity level status not yet achieved post procedure [E](34)(35)(36) [] f) Operative site not appropriate (eg, unexpected or excessive drainage or bleeding) [] g) Postoperative effects not resolved or adequately managed (eg, significant pain or vomiting not appropriate for outpatient or next level of care)(10)(12) [] h) Complicating features requiring inpatient care as indicated by ANY ONE of the following(37): [] i) Severe complications of procedure (eg, bowel injury, airway compromise, vascular injury,severe hemorrhage) [] ii) Extensive (eg, dissection far beyond usual scope of procedure ) or prolonged (eg, 120 minutes beyond usual) surgery needed requiring inpatient postoperative care [] iii) Conversion to an open or complex procedure that requires inpatient care (eg, open vs laparoscopic cholecystectomy, abdominal vs vaginal hysterectomy)(38) [] iv) Comorbid condition or test result identified during or post procedure that requires inpatient care (7) [] v) Malignant hyperthermia(30) [] vi) Other complicating feature requiring inpatient care(22)(23) Inpatient stay may be needed until ALL of the following are present (1)(2)(3)(4) (5)(6)(10)(14)(33)(40): []a) Physiologic recovery: cardiovascular, respiratory, and hemodynamic status normal or near preoperative baseline []b) Hemodynamic stability []c) Patient alert, with near normal or baseline mental status []d) Temperature appropriate: patient afebrile or temperature appropriate for outpt treatment of condition []e) Activity level appropriate: ambulatory or appropriate activity level post procedure []f) Operative site appropriate as indicated by ALL of the following: []i) Site dry or with expected drainage []ii) Any blood noted is as expected for procedure. []g) Postoperative effects resolved or managed as indicated by ALL of the following: []i) Pain management appropriate for outpatient (or next level of) care(10) []ii) Minimal nausea and vomiting: if present, successfully treated with oral medication(12) []iii) Headache, dizziness, or drowsiness (if present) are mild. []h) Voiding status acceptable as indicated by ANY ONE of the following: []i) Voiding spontaneously []ii) No voiding but instructions given for follow-up in 6 to 8 hours []iii) Urinary catheter in place, and instructions given for follow-up []i) Complicating features requiring inpatient care manageable at a lower level of care(37) []j) Comorbid conditions manageable at a lower level of care(37) The original [employer] content created by [employer] has been revised. The portions of the content which have been revised are identified through the use of italic text or in bold, and [email or web address] has neither reviewed nor approved the modified material. All other unmodified content is copyright [employer]. Please see references footnoted in the original [employer] edition 2016 Admission Criteria Met: Yes
[2016-11-24 05:27] LABS: Albumin 3.2 g/dL (3.9-5); Albumin/Globulin Ratio 0.8 %; BUN/Creatinine Ratio 12.91; Bilirubin,Total 0.3 mg/dL (0.1-1.2); Chloride 102.2 mmol/L (98-107); Phosphorous 2.2 mg/dL (2.5-4.5); Potassium 3.7 mmol/L (3.6-5.0); Total Protein 7.2 g/dL (6.3-8.2)
--- NOTE | 2016-11-24 09:18 | Progress Note ---
Assessment and Plan - Patient Problems (1) Acute renal failure (ARF) Current Visit: Yes Status: Acute Qualifiers: Acute renal failure type: with acute renal cortical necrosis Qualified Code (s): N17.1 - Acute kidney failure with acute cortical necrosis Plan to address problem: Acute Kidney Injury in the setting of Obstructive Uropathy, now s/p bilateral stents. Creatinine is much better. Monitor renal function. (2) Hypokalemia Current Visit: Yes Status: Acute Plan to address problem: Improving. (3) Metabolic acidosis Current Visit: Yes Status: Acute (4) Sarcoma Current Visit: Yes Status: Chronic (5) HTN (hypertension) Current Visit: Yes Status: Chronic Qualifiers: Hypertension type: essential hypertension Qualified Code(s): I10 - Essential (primary) hypertension Plan to address problem: BP is fiar. (6) Gout Current Visit: Yes Status: Chronic Qualifiers: Gout site: G Gout etiology: G Encounter type: E Laterality: L Chronicity: C Presence of tophus: P Subjective Date of service: 11/24/16 Principal diagnosis: acute renal failure Interval history: Patient is doing ok. Objective - Vital Signs Vital signs: Vital Signs - 12hr 11/23/16 11/24/16 11/24/16 22:00 00:00 04:00 Temperature 98.5 F 98.6 F Pulse Rate [ 86 95 H Left] Respiratory 20 20 20 Rate Blood Pressure 147/77 144/81 [Left Arm] O2 Sat by Pulse 99 100 Oximetry 11/24/16 07:05 Temperature 98.6 F Pulse Rate [ 85 Left] Respiratory 18 Rate Blood Pressure 121/76 [Left Arm] O2 Sat by Pulse Oximetry - General Appearance General appearance: well-developed, well-nourished, appears stated age, other ( no distress) EENT: PERRL, mucous membranes moist, hearing intact, vision intact Neck: no JVD, supple Respiratory: Present: Clear to Ascultation Cardiology: regular, S1S2, no murmurs Gastrointestinal: normoactive bowel sounds, no tenderness, no distended Integumentary: no rash, warm and dry Neurologic: no focal deficit, no asterixis, confused, disoriented, CN 3-12 intact Musculoskeletal: other (no edema) Psychiatric: cooperative - Lab 11/23/16 04:54 11/24/16 04:28 Most recent lab results Calcium 9.0 mg/dL (8.4-10.2) 11/24/16 04:28 Phosphorus 2.2 mg/dL (2.5-4.5) L 11/24/16 04:28 Magnesium 2.1 mg/dL (1.7-2.3) 11/22/16 20:00 Urine Creatinine 110.9 mg/dL (0.1-20.0) H 11/23/16 10:16 Urine Sodium 53 mEq/L 11/23/16 10:16
[2016-11-24] MEDS: LOVENOX SUB-Q SCH (09:47)
[2016-11-24] MEDS ORDERED: POLYETHYLENE GLYCOL 17 GM PO PRN (11:11)
[2016-11-24] MEDS ORDERED: MIRALAX 3350 PO PRN (11:14)
--- NOTE | 2016-11-24 11:41 | Progress Note ---
Assessment and Plan Assessment and plan: 76 y/o AAF underwent cystoscopy with bladder stone removal by laser and bilateral ureteral stents for relief of bilateral hydronephrosis.Patient has creatinine of 14 before the procedure. (1) Acute renal failure (ARF) -Due to obstructive nephropathy Creatinine has trended down from 14-2.4, (2) Hypokalemia past supplemented and improved (3) HTN (hypertension) hypertensive medications on hold, patient's blood pressure is currently acceptable, we'll likely reintroduce blood pressure medications tomorrow (4) Gout continue allopurinol (5) HLD (hyperlipidemia) continue statins (6) Sarcoma Status post recent surgical resection, however the mass was not completely resectable His surgeon is Dr. Wu at [place] telephone #[phone] or [phone] And his primary care doctor is Dr. Blnaton at [place] -His family wants referral with an oncologist and he currently does not follow with an oncologist History Interval history: No complaints, has baseline dementia but has been pleasant and cooperative Hospitalist Physical - Physical exam Narrative exam: General: Patient appears well in no distress HEENT: MMM, EOMI cardiac: S1-S2 heard lungs: clear to auscultation, abdomen: Palpable nontender pelvic mass extremities: no edema clubbing or cyanosis Skin: no rash or lesion Neuro: no focal deficit Confused, and demented - Constitutional Vitals: Temp Pulse Resp BP Pulse Ox 98.6 F 85 18 121/76 100 11/24/16 07:05 11/24/16 07:05 11/24/16 07:05 11/24/16 07:05 11/24/16 04:00 General appearance: Present: no acute distress, well-nourished Results - Labs CBC & Chem 7: 11/23/16 04:54 11/25/16 04:45 Labs: Laboratory Last Values WBC 9.8 K/mm3 (4.5-11.0) 11/23/16 04:54 RBC 4.86 M/mm3 (3.65-5.03) 11/23/16 04:54 Hgb 10.1 gm/dl (11.8-15.2) L 11/23/16 04:54 Hct 33.9 % (35.5-45.6) L 11/23/16 04:54 MCV 70 fl (84-94) L 11/23/16 04:54 MCH 21 pg (28-32) L 11/23/16 04:54 MCHC 30 % (32-34) L 11/23/16 04:54 RDW 22.3 % (13.2-15.2) H 11/23/16 04:54 Plt Count 124 K/mm3 (140-440) L 11/23/16 04:54 Lymph % (Auto) 8.0 % (13.4-35.0) L 11/23/16 04:54 Coffee % (Auto) 8.4 % (0.0-7.3) H 11/23/16 04:54 Eos % (Auto) 0.2 % (0.0-4.3) 11/23/16 04:54 Baso % (Auto) 0.2 % (0.0-1.8) 11/23/16 04:54 Lymph # 0.8 K/mm3 (1.2-5.4) L 11/23/16 04:54 Coffee # 0.8 K/mm3 (0.0-0.8) 11/23/16 04:54 Eos # 0.0 K/mm3 (0.0-0.4) 11/23/16 04:54 Baso # 0.0 K/mm3 (0.0-0.1) 11/23/16 04:54 Add Manual Diff Complete 11/23/16 04:54 Seg Neutrophils % 83.2 % (40.0-70.0) H 11/23/16 04:54 Seg Neutrophils # 8.1 K/mm3 (1.8-7.7) H 11/23/16 04:54 Sodium 139 mmol/L (137-145) 11/24/16 04:28 Potassium 3.7 mmol/L (3.6-5.0) 11/24/16 04:28 Chloride 102.2 mmol/L (98-107) 11/24/16 04:28 Carbon Dioxide 17 mmol/L (22-30) L 11/24/16 04:28 Anion Gap 24 mmol/L 11/24/16 04:28 BUN 31 mg/dL (9-20) H 11/24/16 04:28 Creatinine 2.4 mg/dL (0.8-1.5) H D 11/24/16 04:28 Estimated GFR 32 ml/min 11/24/16 04:28 BUN/Creatinine Ratio 12.91 % 11/24/16 04:28 Glucose 86 mg/dL (75-100) 11/24/16 04:28 Calcium 9.0 mg/dL (8.4-10.2) 11/24/16 04:28 Phosphorus 2.2 mg/dL (2.5-4.5) L 11/24/16 04:28 Magnesium 2.1 mg/dL (1.7-2.3) 11/22/16 20:00 Total Bilirubin 0.3 mg/dL (0.1-1.2) 11/24/16 04:28 AST 13 units/L (5-40) 11/24/16 04:28 ALT 6 units/L (7-56) L 11/24/16 04:28 Alkaline Phosphatase 63 units/L (35-129) 11/24/16 04:28 Total Protein 7.2 g/dL (6.3-8.2) 11/24/16 04:28 Albumin 3.2 g/dL (3.9-5) L 11/24/16 04:28 Albumin/Globulin Ratio 0.8 % 11/24/16 04:28 PTH Intact 84.06 pg/mL (15-65) H 11/24/16 04:28 Urine Color Red (Yellow) 11/23/16 10:16 Urine Turbidity Cloudy (Clear) 11/23/16 10:16 Urine pH 5.0 (5.0-7.0) 11/23/16 10:16 Ur Specific Pearl 1.011 (1.003-1.030) 11/23/16 10:16 Urine Protein 100 mg/dl mg/dL (Negative) 11/23/16 10:16 Urine Glucose (UA) Neg mg/dL (Negative) 11/23/16 10:16 Urine Ketones Neg mg/dL (Negative) 11/23/16 10:16 Urine Blood Lg (Negative) 11/23/16 10:16 Urine Nitrite Neg (Negative) 11/23/16 10:16 Urine Bilirubin Neg (Negative) 11/23/16 10:16 Urine Urobilinogen < 2.0 mg/dL (<2.0) 11/23/16 10:16 Ur Leukocyte Esterase Mod (Negative) 11/23/16 10:16 Urine WBC (Auto) 72.0 /HPF (0.0-6.0) H 11/23/16 10:16 Urine RBC (Auto) > 182.0 /HPF (0.0-6.0) 11/23/16 10:16 Urine WBC Clumps 2+ /HPF 11/23/16 10:16 Urine Eosinophils 2 (None Seen) 11/23/16 10:16 Urine Creatinine 110.9 mg/dL (0.1-20.0) H 11/23/16 10:16 Urine Sodium 53 mEq/L 11/23/16 10:16
[2016-11-24] MEDS: ZYLOPRIM PO SCH ×2 (19:04→20:00)
--- NOTE | 2016-11-24 21:52 | Consultation ---
History of Present Illness - Reason for Consult Consult date: 11/24/16 - History of Present Illness Patient seen/examined, labs reviewed, case d/w patient, and his daughter. As per patient, no new issues at that time. Impression/recomendation, remains the same. 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) Social history: lives with family (with one of the daughters), other (Chews Tobacco) Family history: hypertension Medications and Allergies Allergies Allergy/AdvReac Type Severity Reaction Status Date / Time NKDA Allergy Unknown Unknown Uncoded 11/22/16 13:42 Home Medications Medication Instructions Recorded Confirmed Last Taken Type Allopurinol [Allopurinol] 100 mg PO TID 11/22/16 11/22/16 11/20/16 History Hydrochlorothiazide 1 mg PO DAILY 11/22/16 11/22/16 11/20/16 History [Hydrochlorothiazide] Levofloxacin [Levaquin TAB] 500 mg PO QDAY 11/22/16 11/22/16 11/21/16 History Lovastatin [Lovastatin] 40 mg PO DAILY 11/22/16 11/22/16 11/20/16 History Polyethylene Glycol 3350 [Miralax] 17 gram PO DAILY PRN 11/22/16 11/22/16 History Verapamil HCl [Verelan] 360 mg PO DAILY 11/22/16 11/22/16 11/20/16 History Active Meds: Active Medications Acetaminophen (Tylenol) 650 mg PO Q4H PRN PRN Reason: Pain MILD(1-3)/Fever >100.5/MOLINA Allopurinol (Zyloprim) 100 mg PO TID [facility] Last Admin: 11/24/16 20:00 Dose: Not Given Bisacodyl (Dulcolax) 10 mg DC QDAY PRN PRN Reason: Constipation unrelieved by MOM Enoxaparin Sodium (Lovenox) 30 mg SUB-Q QDAY [facility] Last Admin: 11/24/16 09:47 Dose: 30 mg Hydromorphone HCl (Dilaudid) 0.5 mg IV Q3H PRN PRN Reason: Pain , Severe (7-10) Sodium Chloride (Nacl 0.9% 1000 Ml) 1,000 mls @ 100 mls/hr IV DIRECT SHANA Last Admin: 11/22/16 14:36 Dose: 42 mls/hr Potassium Chloride/Dextrose/Sod Cl (D5w/Ns W/Kcl 20meq) 20 meq in 1,000 mls @ 125 mls/hr IV DIRECT SHANA Last Admin: 11/23/16 14:04 Dose: 125 mls/hr Magnesium Hydroxide (Milk Of Magnesia) 30 ml PO Q4H PRN PRN Reason: Constipation Metoclopramide HCl (Reglan) 10 mg IV ONCE PRN PRN Reason: Nausea And Vomiting Last Admin: 11/22/16 18:30 Dose: 10 mg Ondansetron HCl (Zofran) 4 mg IV Q8H PRN PRN Reason: N/V unrelieved by Reglan Polyethylene Glycol (Miralax 3350) 17 gm PO QDAY PRN PRN Reason: Constipation Simvastatin (Zocor) 20 mg PO QHS SHANA Exam - Constitutional Vitals: Temp Pulse Resp BP Pulse Ox 98.6 F 105 H 20 113/71 100 11/24/16 20:00 11/24/16 20:00 11/24/16 20:00 11/24/16 20:00 11/24/16 20:00 General appearance: Present: well-nourished - EENT Eyes: Present: PERRL ENT: hearing intact, clear oral mucosa - Neck Neck: Present: supple, normal ROM - Respiratory Respiratory effort: normal Respiratory: bilateral: CTA - Cardiovascular Heart Sounds: Present: S1 & S2. Absent: rub, click - Extremities Extremities: pulses symmetrical, No edema Peripheral Pulses: within normal limits - Abdominal General gastrointestinal: Present: soft, non-tender, non-distended, normal bowel sounds Male genitourinary: Present: deferred - Rectal Rectal Exam: deferred - Integumentary Integumentary: Present: clear, warm, dry - Musculoskeletal Musculoskeletal: gait normal, strength equal bilaterally - Psychiatric Psychiatric: appropriate mood/affect, intact judgment & insight - Neurologic Neurologic: CNII-XII intact, moves all extremities Results - Labs CBC & Chem 7: 11/23/16 04:54 11/24/16 04:28 Labs: Abnormal lab results 11/24/16 11/24/16 Range/Units 04:28 04:28 Carbon Dioxide 17 L (22-30) mmol/L BUN 31 H (9-20) mg/dL Creatinine 2.4 H D (0.8-1.5) mg/dL Phosphorus 2.2 L (2.5-4.5) mg/dL ALT 6 L (7-56) units/L Albumin 3.2 L (3.9-5) g/dL PTH Intact 84.06 H (15-65) pg/mL Assessment and Plan - Patient Problems (1) Acute renal failure (ARF) Current Visit: Yes Status: Acute Qualifiers: Acute renal failure type: with acute renal cortical necrosis Qualified Code (s): N17.1 - Acute kidney failure with acute cortical necrosis Plan to address problem: Improving. (2) Sarcoma Current Visit: Yes Status: Chronic Plan to address problem: SEE rec in the notes. (3) UTI (urinary tract infection) Current Visit: Yes Status: Acute Qualifiers: Urinary tract infection type: U Hematuria presence: H Indwelling urinary catheter type: I Encounter type: E Plan to address problem: Continue with ABX. (4) Obstructive uropathy Current Visit: Yes Status: Acute Plan to address problem: Better since urological laser procedure.
[2016-11-24] MEDS ORDERED: ZOCOR PO SCH (22:00)
[2016-11-25 05:41] LABS: BUN/Creatinine Ratio 13.84; Blood Urea Nitrogen 18 mg/dL (9-20); Calcium 8.4 mg/dL (8.4-10.2); Carbon Dioxide 21 mmol/L (22-30); Chloride 100.3 mmol/L (98-107); Glucose 91 mg/dL (75-100); Sodium 136 mmol/L (137-145)
[2016-11-25 05:49] LABS: Anion Gap 20 mmol/L; Potassium 5.6 mmol/L (3.6-5.0)
--- NOTE | 2016-11-25 06:15 | Hem/Onc Progress Note ---
Subjective Date of service: 11/25/16 Interval history: dr winston already on the case. Objective - Constitutional Vitals: Last Vital Signs Temp 98.5 F 11/25/16 00:00 Pulse 97 H 11/25/16 00:00 Resp 20 11/25/16 00:00 BP 123/85 11/25/16 00:00 Pulse Ox 100 11/25/16 00:00 - Labs Lab Results: Laboratory Results - last 24 hr 11/25/16 04:45 Sodium 136 L Potassium 5.6 H D Chloride 100.3 Carbon Dioxide 21 L Anion Gap 20 BUN 18 Creatinine 1.3 Estimated GFR > 60 BUN/Creatinine Ratio 13.84 Glucose 91 Calcium 8.4
--- NOTE | 2016-11-25 07:07 | Progress Note ---
Assessment and Plan - Patient Problems (1) Acute renal failure (ARF) Current Visit: Yes Status: Acute Qualifiers: Acute renal failure type: with acute renal cortical necrosis Qualified Code (s): N17.1 - Acute kidney failure with acute cortical necrosis Plan to address problem: Acute Kidney Injury in the setting of Obstructive Uropathy, now s/p bilateral stents. Creatinine is significantly better and close to normal. Monitor renal function. D/w his son at the bedside. (2) Hypokalemia Current Visit: Yes Status: Acute Plan to address problem: Hyperkalemia noted. Kayexalate ordered. (3) Metabolic acidosis Current Visit: Yes Status: Acute Plan to address problem: Improving. 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 (5) HTN (hypertension) Current Visit: Yes Status: Chronic Qualifiers: Hypertension type: essential hypertension Qualified Code(s): I10 - Essential (primary) hypertension Plan to address problem: BP is well controlled. (6) Gout Current Visit: Yes Status: Chronic Qualifiers: Gout site: G Gout etiology: G Encounter type: E Laterality: L Chronicity: C Presence of tophus: P Subjective Date of service: 11/25/16 Principal diagnosis: acute renal failure Interval history: Patient is doing well. Objective - Vital Signs Vital signs: Vital Signs - 12hr 11/24/16 11/25/16 11/25/16 20:00 00:00 04:00 Temperature 98.6 F 98.5 F 98.5 F Pulse Rate [ 105 H 97 H 79 Left] Respiratory 20 20 18 Rate Blood Pressure 113/71 123/85 133/77 [Left Arm] O2 Sat by Pulse 100 100 99 Oximetry - General Appearance General appearance: well-developed, well-nourished, appears stated age, other ( no distress) EENT: PERRL, mucous membranes moist, hearing intact, vision intact Neck: supple Respiratory: Present: Clear to Ascultation Cardiology: regular, S1S2, no murmurs Gastrointestinal: normoactive bowel sounds, no tenderness, no distended, no guarding Integumentary: no rash, warm and dry Neurologic: no focal deficit, no asterixis, CN 3-12 intact Musculoskeletal: other (no edema) Psychiatric: mood/affect appropriate, cooperative - Lab 11/23/16 04:54 11/25/16 04:45 Most recent lab results Calcium 8.4 mg/dL (8.4-10.2) 11/25/16 04:45 Phosphorus 2.2 mg/dL (2.5-4.5) L 11/24/16 04:28 Magnesium 2.1 mg/dL (1.7-2.3) 11/22/16 20:00 Urine Creatinine 110.9 mg/dL (0.1-20.0) H 11/23/16 10:16 Urine Sodium 53 mEq/L 11/23/16 10:16
[2016-11-25] MEDS ORDERED: KIONEX PO NR (08:00)
[2016-11-25] MEDS: ZYLOPRIM PO SCH ×2 (09:03→16:26)
[2016-11-25] MEDS ORDERED: NON-FORMULARY (Lovastatin [Lovastatin] 40 MG) PO SCH (10:00)
[2016-11-25] MEDS ORDERED: LOVENOX SUB-Q SCH (10:00)
[2016-11-25] MEDS: NACL 0.9% 1000 ML 1,000 ML IV SCH (10:01)
--- NOTE | 2016-11-25 10:13 | Fluoroscopy Report ---
FLUOROSCOPY RETROGRADE UROGRAPHY HISTORY: Nephrolithiasis, hydronephrosis, bladder stone. FINDINGS: Fluoroscopy was provided by radiology during retrograde urography by Urology. Nine fluoroscopic images were captured. The images of the retrograde pyelogram demonstrate bilateral obstructing ureteral stones. Subsequent images demonstrate bilateral stent placement which adequately drains the collecting systems on the final images. Holmium laser was used. A bladder stone was also removed per the operative notes. Please correlate with the procedural report by Dr. Henson. IMPRESSION: Bilateral nephrolithiasis with subsequent bilateral ureteral stent placement which are in good position.
--- NOTE | 2016-11-25 10:36 | Discharge Summary ---
Providers - Providers Date of Admission: 11/22/16 17:49 Attending physician: NOLVIA KAUR MD 11/22/16 17:49 Consult to Physician [CONS] Routine Consulting Provider: OLU ANDINO Reason For Exam: ARF Place consult to:: Caden Notified:: no Phone number called:: [phone] Time called:: 08:15 Comment:: Dr Cade states that he will call Dr Andino 11/22/16 18:51 Consult to Physician [CONS] Routine Consulting Provider: GARRICK CRUZ Reason For Exam: jory hydronephrosis Place consult to:: Amelia Notified:: yes Phone number called:: [phone] If yes, spoke with:: nessa message on machine Time called:: 08:40 11/24/16 13:23 Consult to Physician [CONS] Routine Consulting Provider: FABIOLA FOX Reason For Exam: pelvic sarcoma Place consult to:: Office Notified:: yes Phone number called:: [phone] Was contact made?: Yes If yes, spoke with:: Pamela(answering service) Time called:: 13:45 Primary care physician: ANDREW HUSSEIN Hospitalization Hospital course: 76 y/o AAF who presented with urinary retention found to have hydroneprhosis and bilateral ureteral stones, who underwent cystoscopy with bladder stone removal by laser and bilateral ureteral stents for relief of bilateral hydronephrosis. After the procedure and with dumont in place, he was rx with IVfluids and he diuresed and his renal function normalised. He was found to have low K which was supplemented. 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 For malnutrition, his family was encourage to feed him a balanced diet rich in fats and protein DC Diagnosis 1. CASTRO due to Renal statis, and obstruction 2. Bilateral obstructive nephrolithiasis 3. Hypokalemia 4. HTN 5. pelvic sarcoma 6. Moderate Malnutrition Disposition: DC/TX HOME UNDER HOME HEALTH Time spent for discharge: 35 minutes Core Measure Documentation - Palliative Care Palliative Care/ Comfort Measures: Palliative Care/Comfort Measures - Core Measures Any of the following diagnoses?: none Exam - Physical Exam Narrative exam: General: Patient appears well in no distress HEENT: MMM, EOMI cardiac: S1-S2 heard lungs: clear to auscultation, abdomen: Palpable nontender pelvic mass extremities: no edema clubbing or cyanosis Skin: no rash or lesion Neuro: no focal deficit Confused, and demented - Constitutional Vitals: Temp Pulse Resp BP Pulse Ox 98.3 F 94 H 18 138/77 100 11/25/16 08:00 11/25/16 08:00 11/25/16 08:00 11/25/16 08:00 11/25/16 08:00 Plan Follow up with: ANDREW HUSSEIN MD [Primary Care Provider] - 7 Days BG CHEN MD [Staff Physician] - 7 Days MENDOZA LEUNG MD [Staff Physician] - 7 Days Prescriptions: HYDROcodone/APAP 5-325 [[place] 5/325] 1 each PO Q4HR PRN #30 tablet PRN Reason: Pain
[2016-11-25 17:26] VITALS: BP 124/76
--- NOTE | 2016-12-03 11:59 | Query- Nutrition ---
[place] Date:_12/03/16 Brim Cutter/CDS:Edmund/Evelyne Phone#:_[phone] Exercise your independent professional judgment when responding to query. Questions asked do not imply a particular answer is desired or expected. We greatly appreciate your clarification on this issue. Clinical Documentation States: 76 y/o AAF underwent cystoscopy with bladder stone removal by laser and bilateral ureteral stents for relief of bilateral hydronephrosis.Patient has creatinine of 14 before the procedure. Clinical Findings Show: (6) Sarcoma Status post recent surgical resection, however the mass was not completely resectable Lymphocytes: 800 BMI: 19.3 Please select the most appropriate option 3 [] Mild Malnutrition [] Mild - Moderate Malnutrition [] Moderate - Severe Malnutrition [] Severe Malnutrition Serum Albumin 2.8 to 3.4 g/dl or Pre-albumin 5 to 17 mg/dl1,2 Inadequate nutritional intake1,2,3,4 NPO > 5 days Weight loss: 5% in 1 month or 7.5% in 3 months or 10% in 6 months1, 3,4 BMI 16 to 18.4 or Weight <90% of ideal body weight1,2,3,4 Serum Albumin < 2.8 g/ dl1,2 Lymphocytes < 1500/ L2 Inadequate nutritional intake3, high stress e.g. major trauma, sepsis,pancreatitis, swann etc. Decubitus ulcers1,2, , skin breakdown2, easy hair pluckability2 Weight <80% standard for height2 Triceps skin fold <3 mm2 Mid-arm muscle circumference <15 cm2 Creatinine-height index <60% standard2 [ ] Cachexia [ ] Emaciated w/Malnutrition [ ] Other: [ ] Unable to determine [ ] Comment/Explanation: Present on Admission: [ ] Yes (Y) [ ] Clinically undeterminable (W) [ ] No ( N) Please also document response in your Progress Notes and/or Discharge Summary and indicate if the condition was present on admission. MTDD
== END 2016-11-25 17:40 | disposition home health service (06) | DRG 669 ==
LOC: OR 13:05 → 2B-SURG 17:49
PROVIDERS: ADMIT Internal Medicine; ATTEND Internal Medicine
PROC: 0TCB8ZZ Extirpation of Matter from Bladder, Via Natural or Artificial Opening Endoscopic (ICD-10-PCS; principal; 2016-11-22)
PROC: 0TC78ZZ Extirpation of Matter from Left Ureter, Via Natural or Artificial Opening Endoscopic (ICD-10-PCS; 2016-11-22)
PROC: 0TC68ZZ Extirpation of Matter from Right Ureter, Via Natural or Artificial Opening Endoscopic (ICD-10-PCS; 2016-11-22)
PROC: 0T788DZ Dilation of Bilateral Ureters with Intraluminal Device, Via Natural or Artificial Opening Endoscopic (ICD-10-PCS; 2016-11-22)
DX: N17.1 Acute kidney failure with acute cortical necrosis (principal); E87.2 Acidosis; C49.9 Malignant neoplasm of connective and soft tissue, unspecified; N39.0 Urinary tract infection, site not specified; E44.0 Moderate protein-calorie malnutrition; Z68.1 Body mass index [BMI] 19.9 or less, adult; N13.2 Hydronephrosis with renal and ureteral calculous obstruction; E87.6 Hypokalemia; I10 Essential (primary) hypertension; M10.9 Gout, unspecified; E78.5 Hyperlipidemia, unspecified; M19.90 Unspecified osteoarthritis, unspecified site; E78.2 Mixed hyperlipidemia; N13.9 Obstructive and reflux uropathy, unspecified; N52.9 Male erectile dysfunction, unspecified; Z82.49 Family history of ischemic heart disease and other diseases of the circulatory system; Z79.899 Other long term (current) drug therapy; Z87.891 Personal history of nicotine dependence
CPT/HCPCS: 36415; 74420; 80048; 80053; 81001; 82570; 82962; 83735; 83970; 84100; 84300; 85025; 89050; A4217; C1758; C1769; C2617; J0690; J1170; J1650; J2270; J2370; J2405; J2704; J2765; J3480; J7030; J7042; Q9967